=== PATIENT | male | born 1965 | race Hispanic/Latino ===

== ENCOUNTER 2023-09-23 20:08 | Inpatient (IN) | payer SELFPAY ==
[2023-09-23] MEDS ORDERED: Acetaminophen 325 MG TAB PO PRN (22:47)
[2023-09-23] MEDS ORDERED: Calcium Carbonate 500 MG ChewTAB PO PRN (22:47)
[2023-09-23] MEDS ORDERED: Senokot S 8.6-50 MG TAB PO PRN (22:47)
[2023-09-23] MEDS ORDERED: HYDROcodone/Acetaminophen 7.5/325 mg Tablet PO PRN (22:47)
[2023-09-23] MEDS ORDERED: Promethazine 25 MG TAB PO PRN (22:54)
[2023-09-23] MEDS ORDERED: rOPINIRole HCl 0.25 MG TAB PO SCH (23:15)
[2023-09-23 23:29] VITALS: BMI 37.0
[2023-09-23] MEDS: guaiFENesin ER 600 MG TAB PO SCH (23:51)
[2023-09-23] MEDS: Sodium Chloride 0.9% 1,000 ML IV SCH (23:52)
[2023-09-24] MEDS: Ipratropium/Albuterol 3 ML NEB NEB SCH ×4 (01:25→19:59)
[2023-09-24 04:32] LABS: Hematocrit 27.6 % (38.8-50.0); Mean Corpuscular HGB CONC 32.6 g/dL (32.0-36.0); Mean Corpuscular Hemoglobin 26.1 pg (27.0-33.0); Mean Platelet Volume 9.9 fl (7.4-10.4); Platelet Count 151 10x3/uL (150-450); RBC Distribution Width 14.8 % (11.5-14.5); Red Blood Cell (RBC) Count 3.45 10x6/uL (4.32-5.72); White Blood Cell (WBC) Count 14.7 10x3/uL (3.5-10.5)
[2023-09-24 04:33] LABS: MDiff Complete? YES
[2023-09-24 04:36] LABS: Anion Gap 15 mmol/L (10-20); BUN (Urea Nitrogen) 31 mg/dL (8.4-25.7); Calc. Creatinine Clearance 65 mL/min (70-130); Calcium 7.9 mg/dL (7.8-10.44); Carbon Dioxide 16 mmol/L (22-29); Chloride 109 mmol/L (98-107); Estimated GFR 38; Glucose 90 mg/dL (70-105); Potassium 3.9 mmol/L (3.5-5.1); Sodium 136 mmol/L (136-145)
[2023-09-24 05:06] LABS: Platelet Adequacy Comment Appears Adequate
[2023-09-24 05:07] LABS: Microcytosis SLIGHT = 6-15 cells (100X) (0-5/hpf)
[2023-09-24 05:11] LABS: Band 14 % (5-11); Lymphocytes 8 % (21-51); Metamyelocyte 2 % (0-0); Monocytes 8 % (0-10); Myelocyte 1 % (0-0); Neutrophil 67 % (42-75)
[2023-09-24 05:29] LABS: Legionella Urinary Ag Negative (Negative)
[2023-09-24 05:42] LABS: Strep pneumo Urine Ag POSITIVE (NEGATIVE)
[2023-09-24] MEDS: Sodium Chloride 0.9% 1,000 ML IV SCH (10:00)
[2023-09-24] MEDS: guaiFENesin ER 600 MG TAB PO SCH ×2 (12:32→22:54)
[2023-09-24] MEDS ORDERED: cefTRIAXone\\ROCEPHIN 2 GM in Sodium Chloride 0.9% 100 ML IVPB SCH ×2 (18:00)
[2023-09-24] MEDS ORDERED: Azithromycin 500 MG in Sodium Chloride 0.9% 250 ML 250 ML IVPB SCH ×2 (18:30→22:00)
[2023-09-24] MEDS ORDERED: rOPINIRole HCl 0.25 MG TAB PO SCH (21:00)
[2023-09-25] MEDS: Sodium Chloride 0.9% 1,000 ML IV SCH (01:25)
[2023-09-25] MEDS: Ipratropium/Albuterol 3 ML NEB NEB SCH ×2 (01:25→07:37)
[2023-09-25 05:59] LABS: Anion Gap 12 mmol/L (10-20); BUN (Urea Nitrogen) 17 mg/dL (8.4-25.7); Calc. Creatinine Clearance 123 mL/min (70-130); Carbon Dioxide 20 mmol/L (22-29); Chloride 110 mmol/L (98-107); Estimated GFR 82; Glucose 101 mg/dL (70-105); Potassium 3.7 mmol/L (3.5-5.1); Sodium 138 mmol/L (136-145)
[2023-09-25 06:12] LABS: Hematocrit 25.9 % (38.8-50.0); Hemoglobin 8.6 g/dL (13.5-17.5); Mean Corpuscular HGB CONC 33.2 g/dL (32.0-36.0); Mean Corpuscular Hemoglobin 26.8 pg (27.0-33.0); Mean Corpuscular Volume 80.7 fl (81.2-95.1); Mean Platelet Volume 10.9 fl (7.4-10.4); Platelet Count 144 10x3/uL (150-450); RBC Distribution Width 14.9 % (11.5-14.5); Red Blood Cell (RBC) Count 3.21 10x6/uL (4.32-5.72); White Blood Cell (WBC) Count 9.6 10x3/uL (3.5-10.5)
[2023-09-25 06:18] LABS: MDiff Complete? YES
[2023-09-25 06:38] LABS: Microcytosis SLIGHT = 6-15 cells (100X) (0-5/hpf); Platelet Adequacy Comment Appears Decreased
[2023-09-25 06:40] LABS: Band 14 % (5-11); Eosinophils 1 % (0-10); Lymphocytes 10 % (21-51); Metamyelocyte 1 % (0-0); Monocytes 7 % (0-10); Neutrophil 67 % (42-75)
[2023-09-25 09:33] VITALS: TEMP 97.9
[2023-09-25] MEDS ORDERED: cefTRIAXone\\ROCEPHIN 2 GM in Sodium Chloride 0.9% 100 ML IVPB SCH (11:00)
[2023-09-25] MEDS: guaiFENesin ER 600 MG TAB PO SCH (11:34)
[2023-09-25] MEDS ORDERED: Azithromycin 500 MG in Sodium Chloride 0.9% 250 ML 250 ML IVPB SCH (12:00)
[2023-09-25 13:08] VITALS: BP 123/73
== END 2023-09-25 12:51 | disposition home or self-care (01) | DRG 871 ==
LOC: CSHTELE 21:38
PROVIDERS: ADMIT Family Medicine; ATTEND Internal Medicine
DX: A41.9 Sepsis, unspecified organism (principal); J13 Pneumonia due to Streptococcus pneumoniae; N17.9 Acute kidney failure, unspecified; E87.20 Acidosis, unspecified; E87.1 Hypo-osmolality and hyponatremia; R65.20 Severe sepsis without septic shock; E83.42 Hypomagnesemia; G25.81 Restless legs syndrome; N18.9 Chronic kidney disease, unspecified; G47.30 Sleep apnea, unspecified; D64.9 Anemia, unspecified; I12.9 Hypertensive chronic kidney disease with stage 1 through stage 4 chronic kidney disease, or unspecified chronic kidney disease; D69.6 Thrombocytopenia, unspecified; Z11.52 Encounter for screening for COVID-19; Z87.891 Personal history of nicotine dependence
CPT/HCPCS: 36415; 80048; 83036; 85025; 87070; 87205; 87449; 87899; 93306; 94640; 94760; 94762; J0456; J0696; J1650; J3490; J7050; J7620